=== PATIENT | male | born 1950 | race African-American/Black ===

== ENCOUNTER 2018-08-01 19:15 | Emergency (ER) | payer MEDICARE ==
[2018-08-01 19:31] VITALS: BP 112/76
[2018-08-01] MEDS ORDERED: AUGMENTIN 875 MG PO ONE (20:08)
[2018-08-01] MEDS ORDERED: BOOSTRIX IM ONE (20:08)
--- NOTE | 2018-08-01 20:12 | Emergency Department Report ---
ED Rash HPI - HPI Chief Complaint: Animal Bite Stated Complaint: DOG BITE (R)ARM/LEG Time Seen by Provider: 08/01/18 20:05 Duration: 1 Day Location: Other (R LEG BEHIND KNEE AND RIGHT UPPER ARM POST SURFACE DOG BITE) Rash Symptoms: No Itching, No Facial Swelling, No Tongue/Oral Swelling, No Breathing Difficulties, No Choking Sensation, No Wheezing/Dyspnea, No Peeling, No Blistering, No Fever, No Lightheaded, No Malaise, No Myalgias Severity: mild ED Review of Systems ROS: Stated complaint: DOG BITE (R)ARM/LEG Other details as noted in HPI Comment: All other systems reviewed and negative Constitutional: denies: chills Eyes: denies: eye pain ENT: denies: ear pain, throat pain Respiratory: denies: cough, orthopnea Cardiovascular: denies: chest pain, palpitations, dyspnea on exertion, orthopnea Endocrine: denies: excessive sweating, flushing, intolerance to cold, intolerance to heat Gastrointestinal: denies: abdominal pain, nausea, vomiting Genitourinary: denies: urgency, dysuria Musculoskeletal: denies: back pain Skin: other (DOG BITE). denies: rash, lesions, change in color, change in hair/ nails, pruritus Neurological: denies: headache, weakness Psychiatric: denies: anxiety, depression Hematological/Lymphatic: denies: easy bleeding ED Past Medical Hx - Past Medical History Hx Hypertension: Yes Additional medical history: ELEVATED CHOLESTEROL - Surgical History Past Surgical History?: No - Social History Smoking Status: Current Every Day Smoker Substance Use Type: None - Medications Home Medications: Home Medications Medication Instructions Recorded Confirmed Last Taken Type Amoxicillin/Potassium Clav 1 each PO BID #20 tablet 08/01/18 Unknown Rx [Augmentin 875-125 Tablet] Rash Exam - Exam General: Vital signs noted. No distress. Alert and acting appropriately. HEENT: No Periorbital Edema, No Conjuctival Injection, No Chemosis, No Perioral Edema, No Tongue Edema, No Uvular Edema, No Compromised Airway, No Drooling Lungs: Yes Good Air Exchange, No Wheezes, No Ronchi, No Stridor, No Cough, No Labored Respirations, No Retractions, No Use of Accessory Muscles Heart: Yes Regular, No Murmur Skin: Yes Other (SUPERFICIAL DOG BITE TO R TRI AND BACK OF R KNEE. NO BLEEDING. BEHIND R KNEE IS MORE OF A SUPERFICIAL ABRASION. BEHIND R TRI IS AN OPEN SUPERFICIAL WOUND. ), No Urticarial Rash, No Maculopapular Rash, No Morbilliform rash, No Bulla(e), No Excoriations, No Weeping, No Tenderness, No Erythema, No Edema, No Encrustations Other: Positive: Abdomen Normal, Neurologic Normal, Musculoskeletal Normal ED Course Vital Signs 08/01/18 08/01/18 19:29 19:41 Temperature 97.7 F 97.7 F Pulse Rate 100 H 105 H Respiratory 18 16 Rate Blood Pressure 112/76 112/76 O2 Sat by Pulse 96 100 Oximetry - Reevaluation(s) Reevaluation #1: 08/01/18 20:10 NEIGHBORS DOG DOG IS A PET PD CALLED NO BLEEDING ON ARRIVAL [facility] WOUND CARE ANTIBIOTICS DC HOME ED Medical Decision Making - Differential Diagnosis BITE, NEIGHBORS DOG; NON ILL ANIMAL Critical care attestation.: If time is entered above; I have spent that time in minutes in the direct care of this critically ill patient, excluding procedure time. ED Disposition Clinical Impression: Dog bite Disposition: DC-01 TO HOME OR SELFCARE Is pt being admited?: No Does the pt Need Aspirin: No Condition: Stable Instructions: Animal Bite (ED) Additional Instructions: CLEAN WOUND WITH SOAP AND WATER MED UNTIL GONE- ANTIBIOTIC MOTRIN OR TYLENOL FOR PAIN OR FEVER Prescriptions: Amoxicillin/Potassium Clav [Augmentin 875-125 Tablet] 1 each PO BID #20 tablet Time of Disposition: 20:10
== END 2018-08-01 20:25 | disposition home or self-care (01) ==
LOC: EDSEX → ED 19:15
DX: S41.151A Open bite of right upper arm, initial encounter (principal); S81.051A Open bite, right knee, initial encounter; I10 Essential (primary) hypertension; E78.00 Pure hypercholesterolemia, unspecified; F17.200 Nicotine dependence, unspecified, uncomplicated; W54.0XXA Bitten by dog, initial encounter; Y93.89 Activity, other specified; Y92.89 Other specified places as the place of occurrence of the external cause; Y99.8 Other external cause status
CPT/HCPCS: 90471; 90715; 99282